=== PATIENT | female | born 1965 | race Caucasian/White ===

== ENCOUNTER 2019-06-30 15:17 | Outpatient (CLI) | payer OTHER, SELFPAY ==
--- NOTE | ~2019-06-30 | MM_ITS ---
EXAMINATION: MM screening [facility] BI w charanjit HISTORY: Screening mammogram TECHNIQUE: Craniocaudal and mediolateral oblique 3-D tomosynthesis images were obtained and synthetic 2-D images were generated. CAD analysis was submitted and interpreted. COMPARISON: 06/27/2018 bilateral digital screening mammogram To diagnostic right digital mammogram and limited right breast ultrasound BREAST PARENCHYMAL COMPOSITION: The breasts are almost entirely fatty. FINDINGS: There is no evidence of suspicious mass, calcification, or architectural distortion to sugg est malignancy in either breast. There has been no suspicious interval change. IMPRESSION: 1. No mammographic evidence of malignancy. 2. Recommend routine screening mammography in one year. BI-RADS Category 1: Negative Reviewed, dictated and finalized at location A. ER APPRENTICE
== END 2019-06-30 15:18 | disposition home or self-care (01) ==
LOC: ANHIMG 15:37
PROVIDERS: PCP Internal Medicine; Visit Provider Nurse Practitioner Women's Health
DX: Z12.31 Encounter for screening mammogram for malignant neoplasm of breast (principal)
CPT/HCPCS: 77063; 77067

== ENCOUNTER 2020-07-08 15:42 | Outpatient (CLI) | payer OTHER, SELFPAY ==
--- NOTE | ~2020-07-08 | MM_ITS ---
EXAMINATION: MM screening [facility] BI w charanjit HISTORY: Screening TECHNIQUE: Craniocaudal and mediolateral oblique 3-D tomosynthesis images were obtained and synthetic 2-D images were generated. CAD analysis was submitted and interpreted. COMPARISON: Comparison to multiple prior studies sequentially, with oldest reviewed study dated 04/22. BREAST PARENCHYMAL COMPOSITION: There are scattered areas of fibroglandular density. FINDINGS: There is no evidence of suspicious mass, calcification, or architectural distortion to sugg est malignancy in either breast. There has been no suspicious interval change. IMPRESSION: 1. No mammographic evidence of malignancy. 2. Recommend routine screening mammography in one year. BI-RADS Category 1: Negative Reviewed, dictated and finalized at location A. TEACHER
== END 2020-07-08 15:43 | disposition home or self-care (01) ==
PROVIDERS: PCP Internal Medicine; Visit Provider Nurse Practitioner Women's Health
DX: Z12.31 Encounter for screening mammogram for malignant neoplasm of breast (principal)
CPT/HCPCS: 77063; 77067

== ENCOUNTER 2021-05-03 06:55 | Outpatient (CLI) | payer OTHER, SELFPAY ==
[2021-05-03 07:53] LABS: Alanine Aminotransferase 29 U/L (4-35); Albumin Level 4.8 g/dL (3.5-5.1); Alkaline Phosphatase 75 U/L (38-126); Anion Gap 10 mmol/L (8-16); Aspartate Amino Transferase 29 U/L (14-36); Bilirubin,Total 0.4 mg/dL (0.2-1.3); Blood Urea Nitrogen 14 mg/dL (7-17); Calcium 9.6 mg/dL (8.4-10.2); Carbon Dioxide 23 mmol/L (22-30); Chloride 103 mmol/L (98-107); Cholesterol 267 mg/dL (0-200); Estimated Glomerular Filt Rate > 60; Glucose 111 mg/dL (65-110); HDL Direct 53 mg/dL; Potassium 4.1 mmol/L (3.4-5.0); Sodium 136 mmol/L (137-145); Triglycerides 189 mg/dL (<150)
[2021-05-03 08:03] LABS: LDL Cholesterol Direct 175 mg/dL
[2021-05-03 08:08] LABS: Basophils Absolute Auto 0.1 K/mm3 (0.0-0.1); Eosinophils Absolute Auto 0.3 K/mm3 (0-0.3); Eosinophils Percent Auto 4.7 % (0-4.4); Hematocrit 46.3 % (37.0-47.0); Hemoglobin 15.6 g/dL (12.0-15.0); Immature Granulocyte Absolute 0.02 K/mm3 (0.00-0.031); Immature Granulocyte Percent A 0.3 % (0-0.5); Lymphocytes Absolute Auto 2.13 K/mm3 (0.9-3.2); Lymphocytes Percent Auto 29.5 % (18.3-44.2); Mean Corpuscular HGB Conc 33.7 g/dl (32-36); Mean Corpuscular Hemoglobin 30.4 pg (26-34); Mean Corpuscular Volume 90.3 fl (80-100); Mean Platelet Volume 9.8 fl (7.4-10.4); Monocytes Absolute Auto 0.4 K/mm3 (0.1-0.6); Neutrophils Absolute Auto 4.2 K/mm3 (1.3-6.7); Neutrophils Percent Auto 58.5 % (45.5-73.1); Platelet Count Result 278 k/mm3 (150-375); Red Blood Count 5.13 M/mm3 (4.2-5.4); Red Cell Distribution Width 12.6 % (11.5-14.5); White Blood Count 7.2 K/mm3 (4.5-10.0)
[2021-05-03 08:10] LABS: Vitamin D 25 Hydroxy 50.6 ng/mL
[2021-05-03 13:48] LABS: Free T4 Free Thyroxine Reflex 0.81 ng/dL (0.78-2.19)
[2021-05-03 19:20] LABS: Total Triiodothyronine (T3) 1.34 NG/ML (0.97-1.69)
== END 2021-05-03 06:56 | disposition home or self-care (01) ==
PROVIDERS: Visit Provider Nurse Practitioner Women's Health
DX: Z12.31 Encounter for screening mammogram for malignant neoplasm of breast (principal); Z01.419 Encounter for gynecological examination (general) (routine) without abnormal findings
CPT/HCPCS: 36415; 80053; 80061; 82306; 84439; 84443; 84480; 85025

== ENCOUNTER 2021-07-29 15:38 | Outpatient (CLI) | payer OTHER, SELFPAY ==
--- NOTE | ~2021-07-29 | MM_ITS ---
EXAMINATION: MM screening [facility] BI w charanjit HISTORY: Screening mammogram TECHNIQUE: Craniocaudal and mediolateral oblique 3-D tomosynthesis images were obtained and synthetic 2-D images were generated. CAD analysis was submitted and interpreted. COMPARISON: 07/08/2020, 06/30/2019 BREAST PARENCHYMAL COMPOSITION: There are scattered areas of fibroglandular density. FINDINGS: There is no evidence of suspicious mass, calcification, or architectural distortion to sugg est malignancy in either breast. There has been no suspicious interval change. IMPRESSION: 1. No mammographic evidence of malignancy. 2. Recommend routine screening mammography in one year. BI-RADS Category 1: Negative Reviewed, dictated and finalized at location A.
== END 2021-07-29 15:39 | disposition home or self-care (01) ==
LOC: ANHIMG 15:40
PROVIDERS: PCP Family Medicine; Visit Provider Nurse Practitioner Women's Health
DX: Z12.31 Encounter for screening mammogram for malignant neoplasm of breast (principal)
CPT/HCPCS: 77063; 77067

== ENCOUNTER 2022-11-17 07:15 | Outpatient (CLI) | payer OTHER, SELFPAY ==
--- NOTE | ~2022-11-17 | MM_ITS ---
EXAMINATION: MM screening [facility] BI w charanjit HISTORY: Screening mammogram TECHNIQUE: Craniocaudal and mediolateral oblique 3-D tomosynthesis images were obtained and synthetic 2-D images were generated. CAD analysis was submitted and interpreted. COMPARISON: 07/29/2021, 07/08/2020, 06/30/2019 BREAST PARENCHYMAL COMPOSITION:There are scattered areas of fibroglandular density. FINDINGS: No suspicious mass, calcification, or architectural distortion are identified in either renetta ast to suggest malignancy. There has been no suspicious interval change. IMPRESSION: No mammographic evidence of malignancy. Recommend routine screening mammography in one year. BI-RADS Category 1: Negative Reviewed, dictated and finalized at location .
== END 2022-11-17 07:16 | disposition home or self-care (01) ==
LOC: ANHIMG 07:17
PROVIDERS: PCP Nurse Practitioner Women's Health; Visit Provider Nurse Practitioner Women's Health
DX: Z12.31 Encounter for screening mammogram for malignant neoplasm of breast (principal)
CPT/HCPCS: 77063; 77067

== ENCOUNTER 2023-02-27 08:42 | Outpatient (CLI) | payer OTHER, SELFPAY ==
[2023-02-27 09:02] LABS: Basophils Absolute Auto 0.1 K/mm3 (0.0-0.1); Basophils Percent Auto 1.1 % (0.2-1.2); Eosinophils Absolute Auto 0.2 K/mm3 (0-0.3); Eosinophils Percent Auto 2.7 % (0-4.4); Hematocrit 45.7 % (37.0-47.0); Hemoglobin 15.3 g/dL (12.0-15.0); Immature Granulocyte Absolute 0.02 K/mm3 (0.00-0.031); Immature Granulocyte Percent A 0.3 % (0-0.5); Lymphocytes Absolute Auto 2.34 K/mm3 (0.9-3.2); Lymphocytes Percent Auto 36.7 % (18.3-44.2); Mean Corpuscular HGB Conc 33.5 g/dl (32-36); Mean Corpuscular Hemoglobin 30.3 pg (26-34); Mean Corpuscular Volume 90.5 fl (80-100); Mean Platelet Volume 9.7 fl (7.4-10.4); Monocytes Absolute Auto 0.3 K/mm3 (0.1-0.6); Monocytes Percent Auto 5.3 % (2.6-8.5); Neutrophils Absolute Auto 3.4 K/mm3 (1.3-6.7); Neutrophils Percent Auto 53.9 % (45.5-73.1); Platelet Count Result 252 k/mm3 (150-375); Red Blood Count 5.05 M/mm3 (4.2-5.4); Red Cell Distribution Width 12.6 % (11.5-14.5); White Blood Count 6.4 K/mm3 (4.5-10.0)
[2023-02-27 09:15] LABS: Hemoglobin A1C 5.6 % (<5.7)
[2023-02-27 09:18] LABS: Alanine Aminotransferase 23 U/L (6-35); Albumin Level 4.8 g/dL (3.5-5.1); Alkaline Phosphatase 66 U/L (38-126); Anion Gap 9 mmol/L (8-16); Aspartate Amino Transferase 25 U/L (14-36); Bilirubin,Total 0.6 mg/dL (0.2-1.3); Blood Urea Nitrogen 15 mg/dL (7-17); Calcium 9.5 mg/dL (8.4-10.2); Carbon Dioxide 22 mmol/L (22-30); Chloride 106 mmol/L (98-107); Cholesterol 277 mg/dL (0-200); Estimated Glomerular Filt Rate > 60; Glucose 102 mg/dL (65-110); HDL Direct 59 mg/dL; Potassium 4.1 mmol/L (3.4-5.0); Sodium 137 mmol/L (137-145); Triglycerides 184 mg/dL (<150)
[2023-02-27 09:29] LABS: LDL Cholesterol Direct 162 mg/dL
[2023-02-27 09:45] LABS: Vitamin D 25 Hydroxy 34.4 ng/mL
== END 2023-02-27 08:43 | disposition home or self-care (01) ==
LOC: ANHLAB 08:44
PROVIDERS: PCP Nurse Practitioner Women's Health; Visit Provider Physician Assistant Medical
DX: Z00.00 Encounter for general adult medical examination without abnormal findings (principal)
CPT/HCPCS: 36415; 80053; 80061; 82306; 82607; 83036; 84443; 85025

== ENCOUNTER 2023-06-12 07:22 | Outpatient (CLI) | payer OTHER, SELFPAY ==
[2023-06-12 08:11] LABS: Cholesterol 158 mg/dL (0-200); HDL Direct 45 mg/dL; Triglycerides 164 mg/dL (<150)
[2023-06-12 08:21] LABS: LDL Cholesterol Direct 89 mg/dL
[2023-06-12 08:33] LABS: Free T4 Free Thyroxine 0.99 ng/mL (0.78-2.19)
[2023-06-15 06:44] LABS: Thyroid Peroxidase Antibodies <1 IU/mL (<9)
== END 2023-06-12 07:23 | disposition home or self-care (01) ==
LOC: ANHLAB 07:23
PROVIDERS: PCP Family Medicine; Visit Provider Physician Assistant Medical
DX: E53.8 Deficiency of other specified B group vitamins (principal); E78.5 Hyperlipidemia, unspecified; R79.89 Other specified abnormal findings of blood chemistry
CPT/HCPCS: 36415; 80061; 82607; 84439; 84443; 86376

== ENCOUNTER 2023-06-15 00:44 | Day surgery (SDC) | payer OTHER, SELFPAY ==
[2023-05-17 10:15] VITALS: BMI 29.1
--- NOTE | 2023-06-13 09:15 | SUR.PREOP ---
Patient called regarding upcoming procedure. Message left on patient's voicemail regarding appointment times.
[2023-06-15 07:35] VITALS: BP 113/71; PULSE 98; RESP 18; TEMP 36.4; O2SAT 100; BMI 33.8
[2023-06-15] MEDS: LACTATED RINGERS 1,000 ML 150 ML IV CONT (08:02)
--- NOTE | 2023-06-15 08:55 | WPDANESEPPF ---
Anes - Initial Pre Proc Eval Procedure: Operation Date: 06/15/23 09:00 Proposed Procedures p Screening Colonoscopy - Chito Pizarro MD Date/Time: 06/15/23 08:55 Surgeon: Chito Pizarro MD Pre Op Diagnosis: neoplasm screening Patient Data Age: 58 Gender: F Height: 1.55 m Weight: 81.2 kg Last Vital Signs Temp 97.5 F L 06/15/23 07:35 Pulse 98 06/15/23 07:35 Resp 18 06/15/23 07:35 BP 113/71 06/15/23 07:35 Pulse Ox 100 06/15/23 07:35 O2 Del Method Room Air 06/15/23 07:35 Allergies Allergy/AdvReac Type Severity Reaction Status Date / Time No Known Allergies Allergy Unknown Verified 05/17/23 10:12 Home Medications Medication Instructions Recorded Confirmed Type multivitamin (Daily Multi-Vitamin 1 tablet PO DAILY 06/20/21 05/17/23 History tablet) sertraline 25 mg tablet 25 mg PO DAILY 06/20/21 05/17/23 History atorvastatin 20 mg tablet (Lipitor) 20 mg PO QHS #90 tabs 06/13/23 Rx Patient hx anesthesia problems: none Family hx anesthesia problems: none Results Review: All pre-operative results and documents have been reviewed as part of the pre-operative evaluation. [facility] Past Medical History Medical History (Updated 03/09/23 @ 11:56 by Kim Crabtree PA-C) Abnormal TSH Family history of CABG Both parents had CABG Hyperglycemia Hyperlipidemia Irritable bowel syndrome Polycythemia Vitamin B12 deficiency Vitamin D deficiency Surgical History Surgical History H/O sinus surgery History of tonsillectomy Previous section Family History Family History Mother Cerebrovascular accident Heart disease Father Cerebrovascular accident, Onset Age: 79 Malignant neoplasm of prostate, Onset Age: 79 Patient's father is , Onset Age: 79 Other Family history of malignant neoplasm of breast Social History Social History (Updated 03/09/23 @ 10:51 by Marifer Fernandez MA) Smoking status: Former smoker Alcohol intake: current Drinks per week: 4 Alcohol use details: Weekends Substance use: never Lack of Transportation: No Lack of Food: Never True Current Housing: I Have Housing Concerned About Future Housing: No Difficulty Paying Gas/Electric Bills: No Difficulty Paying for Meds: No Currently Unemployed: No Education: Associate Degree Difficulty w/ Childcare or Family Care: No Living arrangements: with family Occupation/Education: occupation 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[employer] Gender identity (if verbalized by the patient): Female Sexual Orientation (if Verbalized by the Patient): Straight or Heterosexual Spiritual care concerns: No Agree to blood products: Yes Anes - Eval Final PreProcedure Day of Procedure 06/15/23 08:55 Patient weight: obese Heart: regular rate and rhythm Lungs: clear to auscultation Airway: Mallampati scale class II Neurological: alert and oriented Last oral intake: >/= 8 hours ASA classification: II Emergent: no Anesthetic plan: proceed Anesthesia type and monitoring: general GIVS and standard monitoring Results Review: All pre-operative results and documents have been reviewed as part of the pre-operative evaluation. Informed Consent: The patient's anesthetic plan and its attendant risks and benefits were discussed with the patient/family/POA. Questions were solicited and answers provided to the satisfaction of the patient/family/POA.
--- NOTE | 2023-06-15 08:58 | PM.HPGS ---
History of Present Illness History of Present Illness Consent: Risks, benefits, and alternatives have been discussed and questions answered. Patient agrees to proceed with procedure. Chief complaint: neoplasm screening Narrative: Em Goldamn is a 58 year old female here for first screening colonoscopy Review of Systems Constitutional: Constitutional: Denies headache(s) and Denies weakness Eyes: Eyes: Denies blurry vision ENT: Reports Normal hearing present, Denies headache(s) and Denies neck pain Cardiovascular: Cardiovascular: Denies chest pain and Denies dyspnea Respiratory: Respiratory: Denies dyspnea Gastrointestinal: Gastrointestinal: Reports no additional gastrointestinal complaints Genitourinary: Genitourinary: Denies dysuria Musculoskeletal: Musculoskeletal: Denies neck pain Integumentary/Breasts: Skin/Breast: Denies dry skin Neurologic: Reports Normal hearing present, Denies headache(s) and Denies weakness Psychiatric: Psychiatric: Denies anxiety Endocrine: Endocrine: Denies change in body appearance Hematologic/Lymphatic: Hematologic/Lymphatic: Denies easy bleeding Allergic/Immunologic: Allergic/Immunologic: Denies urticaria PMF Past Medical History Medical History (Updated 03/09/23 @ 11:56 by Kim Crabtree PA-C) Abnormal TSH Family history of CABG Both parents had CABG Hyperglycemia Hyperlipidemia Irritable bowel syndrome Polycythemia Vitamin B12 deficiency Vitamin D deficiency Surgical History Surgical History H/O sinus surgery History of tonsillectomy Previous section Family History Family History Mother Cerebrovascular accident Heart disease Father Cerebrovascular accident, Onset Age: 79 Malignant neoplasm of prostate, Onset Age: 79 Patient's father is , Onset Age: 79 Other Family history of malignant neoplasm of breast Social History Social History (Updated 03/09/23 @ 10:51 by Marifer Fernandez MA) Smoking status: Former smoker Alcohol intake: current Drinks per week: 4 Alcohol use details: Weekends Substance use: never Lack of Transportation: No Lack of Food: Never True Current Housing: I Have Housing Concerned About Future Housing: No Difficulty Paying Gas/Electric Bills: No Difficulty Paying for Meds: No Currently Unemployed: No Education: Associate Degree Difficulty w/ Childcare or Family Care: No Living arrangements: with family Occupation/Education: occupation Additional occupation/education comments: Night Supervisor Gender identity (if verbalized by the patient): Female Sexual Orientation (if Verbalized by the Patient): Straight or Heterosexual Spiritual care concerns: No Agree to blood products: Yes Meds Home Medications and Allergies Home Medications Medication Instructions Recorded Confirmed Type multivitamin (Daily Multi-Vitamin 1 tablet PO DAILY 06/20/21 05/17/23 History tablet) sertraline 25 mg tablet 25 mg PO DAILY 06/20/21 05/17/23 History atorvastatin 20 mg tablet (Lipitor) 20 mg PO QHS #90 tabs 06/13/23 Rx Allergies Allergy/AdvReac Type Severity Reaction Status Date / Time No Known Allergies Allergy Unknown Verified 05/17/23 10:12 Vital Signs Vital Signs - 24 hr 06/15/23 07:35 Temperature 97.5 F L Pulse Rate 98 Respiratory Rate 18 Blood Pressure 113/71 Pulse Oximetry 100 Oxygen Delivery Room Air Exam Const: General: comfortable and no acute distress HENMT: Face/Nose/Sinus: Normal nares present Eyes: General: appearance normal, both eyes and all related structures Neck: Neck: no JVD Resp: Auscultation: clear to auscultation bilaterally Cardio: Rate: regular rate Rhythm: regular rhythm GI: Inspection: non-distended GI Palp: Yes Soft to palpation Skin: General skin exam: normal color Neuro: General: ga
[2023-06-15 09:15] VITALS: BP 128/72; PULSE 87; RESP 19; O2SAT 98
[2023-06-15 09:25] VITALS: BP 107/76; PULSE 85; RESP 20; O2SAT 96
[2023-06-15 09:35] VITALS: BP 124/86; PULSE 78; RESP 18; O2SAT 99
== END 2023-06-15 09:40 | disposition home or self-care (01) ==
PROVIDERS: PCP Family Medicine; Visit Provider Internal Medicine Gastroenterology
PROC: 0DJD8ZZ Inspection of Lower Intestinal Tract, Via Natural or Artificial Opening Endoscopic (ICD-10-PCS; CPT 45378; principal; 2023-06-15 09:00)
DX: Z12.11 Encounter for screening for malignant neoplasm of colon (principal); D12.0 Benign neoplasm of cecum; D12.4 Benign neoplasm of descending colon; K57.30 Diverticulosis of large intestine without perforation or abscess without bleeding; K64.8 Other hemorrhoids; E78.5 Hyperlipidemia, unspecified; Z87.891 Personal history of nicotine dependence; E66.9 Obesity, unspecified; Z68.33 Body mass index [BMI] 33.0-33.9, adult
CPT/HCPCS: 45385; 45380; 88305; J2704; J7120

== ENCOUNTER 2023-11-26 16:10 | Outpatient (CLI) | payer OTHER, SELFPAY ==
--- NOTE | ~2023-11-26 | US_ITS ---
EXAMINATION: US pelvic complete w TV DATE: 11/26/2023 16:54 INDICATION: Postmenopausal bleeding. TECHNIQUE: Multiple transabdominal and transvaginal sonographic images of the pelvis were obtained. COMPARISON: None. FINDINGS: TRANSABDOMINAL ULTRASOUND: The uterus measures 9.2 x 3.1 x 4.1 cm. There is no free fluid in the pelvis. TRANSVAGINAL ULTRASOUND: The endometrial complex measures 3 mm in thickness. The ovaries are not visualized. IMPRESSION: 1. Normal uterus. 2. Ovaries are not visualized. Reviewed, dictated and finalized at location E.
== END 2023-11-26 16:11 | disposition home or self-care (01) ==
LOC: ANHIMG 16:10
PROVIDERS: PCP Physician Assistant Medical
DX: N95.0 Postmenopausal bleeding (principal)
CPT/HCPCS: 76830; 76856

== ENCOUNTER 2024-01-01 15:46 | Outpatient (CLI) | payer OTHER, SELFPAY ==
--- NOTE | ~2024-01-01 | MM_ITS ---
EXAMINATION: MM screening [facility] BI w charanjit HISTORY: Screening TECHNIQUE: Craniocaudal and mediolateral oblique 3-D tomosynthesis images were obtained and synthetic 2-D images were generated. CAD analysis was submitted and interpreted. COMPARISON: Comparison to multiple prior studies sequentially, with oldest reviewed study dated 11/2018. BREAST PARENCHYMAL COMPOSITION: Not dense: There are scattered areas of fibroglandular density. FINDINGS: There is no evidence of suspicious mass, calcification, or architectural distortion to sugg est malignancy in either breast. There has been no suspicious interval change. IMPRESSION: 1. No mammographic evidence of malignancy. 2. Recommend routine screening mammography in one year. BI-RADS Category 1: Negative Reviewed, dictated and finalized at location B.
== END 2024-01-01 15:47 | disposition home or self-care (01) ==
LOC: ANHIMG 15:47
PROVIDERS: PCP Physician Assistant Medical; Visit Provider Nurse Practitioner Women's Health
DX: Z12.31 Encounter for screening mammogram for malignant neoplasm of breast (principal)
CPT/HCPCS: 77063; 77067

== ENCOUNTER 2024-06-24 06:55 | Outpatient (CLI) | payer OTHER, SELFPAY ==
--- OUTSIDE RECORDS SUMMARY | 2024-06-24 06:59 | XMS_ITS | Encounter Summary ---
Author Organization [facility] Address [address] [place] [address]. [place] [address] [place] [address] Care Team Providers Care Vessel Manager Name Role Phone Unavailable Primary Care Provider Unavailabl e Encounter Details Date Type Department Care Team (Late st Contact Info) Description 04/21/2013 Abstract [facility] CONVERSION [id number] [place] [address] , Generic Conversion, Social History Tobacco Use Types Packs/Day Years Used Date Smoking Tobacco: Never Assessed Comments Unknown Sex and Gender Information Value Date Recorded Sex Assigned at Not on file Legal Sex Female 9:14 PM CDT Gender Identity Not on file Sexual Orientation Not on file documented as of this encounter Plan of Treatment Not on file documented as of this encounter Visit Diagnoses Not on filedocumented in this encounter
--- OUTSIDE RECORDS SUMMARY | 2024-06-24 06:59 | XMS_ITS | Clinical Summary ---
Author Organization [facility] Address [address] [place] [address]. [place], [place] [id number] [place] [id number] Care Team Providers Care Wax Specialist Name Role Phone Unavailable Primary Care Provider Unavailabl e Social History Tobacco Use Types Packs/Day Years Used Date Smoking Tobacco: Never Assessed Comments Unknown Sex and Gender Information Value Date Recorded Sex Assigned at Not on file Legal Sex Female 9:14 PM CDT Gender Identity Not on file Sexual Orientation Not on file Plan of Treatment Health Maintenance Due Date Last Done Comments Cervical Cancer Screening Pa p Smear (Age 30 to 64) Every 3 Years 1963 Colorectal Cancer Screening Colonoscopy (10 Years) 1963 Annual Physical 1966 Hepatitis C 1981 DTaP, Tdap and Td Vaccines ( 1 - Tdap) 1982 Mammogram Screening 2003 Zoster Vaccines (1 of 2) 2013 Cervical Cancer Screening Pa p with HPV Testing (Age 30 to 64) Every 5 Years 03/13/2022 03/13/2017 Cervical Cancer Screening with HPV 03/13/2022 COVID-19 Vaccine ( - 2023-2 5 season) 2024 Influenza Adult (#1) 2024 RSV Immunization or 60+ Years (1 - 1-dose 75+ series) 2038 Meningococcal B Vaccine Aged Out No l onger eligible based on patient's age to complete this topic Meningococcal Vaccine Aged Out No soy jyoti eligible based on patient's age to complete this topic Pneumococcal Vaccine: Pediat rics (0 to 5 Years) and At-Risk Patients (6 to 64 Years) Aged Out No longer eligi ble based on patient's age to complete this topic RSV Immunizations Under 20 Months Aged Out No longer eligible based on patient's age to complete this topic Procedures Procedure Name Priority Date/Time Associated Diagnosis Comments HPV MRNA E6/E7 Routine 03/13/2017 6:24 PM CDT from Last 3 Months or Most Recently Relevant to Health Maintenance Results * HPV MRNA E6/E7 (03/13/2017 6:24 PM CDT) HPV MRNA E6/E7 Not Detected NOT DETECTED 03/17/2017 1:30 PM CDT [facility] Comment: This test was performed using the APTIMA(R) HPV Assay([employer]This assay detects E6/E7 viral messenger RNA (mRNA)from 14 high-risk HPV types (16,18,31,33,35,39,45,51,52,56,58,59,66,68).For additional information please refer to:http://education.FIMBex/faq/DVK086b2(This link is being provided for informational/educational purposes only.)Test Performed by Andres Ferrell,[employer] [facility],[address] [place] [id number] Zhu M.D., Ph.D., Director of [phone], [facility] [id number] FLUID SPECIMEN / Unknown 03/13/2017 6:24 PM CDT 03/13/2017 6:24 PM CDT us Generic Conversion Md [facility] PATHOLOGY/CYTOLOGY LEXA [facility]ER [facility] [id number] [place] [address], from Last 3 Months or Most Recently Relevant to Health Maintenance
[2024-06-24 07:57] LABS: Basophils Absolute Auto 0.1 K/mm3 (0.0-0.1); Basophils Percent Auto 0.9 % (0.2-1.2); Eosinophils Absolute Auto 0.3 K/mm3 (0-0.3); Eosinophils Percent Auto 3.8 % (0-4.4); Hematocrit 44.2 % (37.0-47.0); Hemoglobin 14.7 g/dL (12.0-15.0); Immature Granulocyte Absolute 0.03 K/mm3 (0.00-0.031); Immature Granulocyte Percent A 0.5 % (0-0.5); Lymphocytes Absolute Auto 2.13 K/mm3 (0.9-3.2); Lymphocytes Percent Auto 32.1 % (18.3-44.2); Mean Corpuscular HGB Conc 33.3 g/dl (32-36); Mean Corpuscular Hemoglobin 30.2 pg (26-34); Mean Corpuscular Volume 90.9 fl (80-100); Mean Platelet Volume 10.6 fl (7.4-10.4); Monocytes Absolute Auto 0.5 K/mm3 (0.1-0.6); Monocytes Percent Auto 7.2 % (2.6-8.5); Neutrophils Absolute Auto 3.7 K/mm3 (1.3-6.7); Neutrophils Percent Auto 55.5 % (45.5-73.1); Platelet Count Result 227 k/mm3 (150-375); Red Blood Count 4.86 M/mm3 (4.2-5.4); Red Cell Distribution Width 12.9 % (11.5-14.5); White Blood Count 6.6 K/mm3 (4.5-10.0)
[2024-06-24 10:07] LABS: Free T4 Free Thyroxine 0.93 ng/dL (0.78-2.19); Vitamin D 25 Hydroxy 33.2 ng/mL
[2024-06-24 10:44] LABS: Alanine Aminotransferase 22 U/L (6-35); Albumin Level 4.4 g/dL (3.5-5.1); Alkaline Phosphatase 69 U/L (38-126); Anion Gap 9 mmol/L (4-12); Aspartate Amino Transferase 24 U/L (14-36); Bilirubin,Total 0.6 mg/dL (0.2-1.3); Blood Urea Nitrogen 14 mg/dL (7-17); Calcium 9.7 mg/dL (8.4-10.2); Carbon Dioxide 25 mmol/L (22-30); Chloride 106 mmol/L (98-107); Cholesterol 179 mg/dL (0-200); Estimated Glomerular Filt Rate > 60; Glucose 96 mg/dL (65-110); HDL Direct 54 mg/dL; Potassium 4.3 mmol/L (3.4-5.0); Sodium 140 mmol/L (137-145); Triglycerides 126 mg/dL (<150)
[2024-06-24 10:55] LABS: LDL Cholesterol Direct 101 mg/dL
== END 2024-06-24 06:56 | disposition home or self-care (01) ==
LOC: ANHLAB 06:57
PROVIDERS: PCP Physician Assistant Medical; Visit Provider Physician Assistant Medical
DX: Z00.00 Encounter for general adult medical examination without abnormal findings (principal); E78.5 Hyperlipidemia, unspecified; R79.89 Other specified abnormal findings of blood chemistry; E55.9 Vitamin D deficiency, unspecified; E53.8 Deficiency of other specified B group vitamins
CPT/HCPCS: 36415; 80053; 80061; 82306; 82607; 84439; 84443; 85025

== ENCOUNTER 2025-03-10 15:54 | Outpatient (CLI) | payer OTHER, SELFPAY ==
--- NOTE | ~2025-03-10 | MM_ITS ---
EXAMINATION: MM screening latosha BI w charanjit HISTORY: Screening TECHNIQUE: Craniocaudal and mediolateral oblique 3-D tomosynthesis images were obtained and synthetic 2-D images were generated. CAD analysis was submitted and interpreted. COMPARISON: Comparison to multiple prior studies sequentially, with oldest reviewed study dated , 07/08/2020 BREAST PARENCHYMAL COMPOSITION: The breasts are almost entirely fatty. FINDINGS: There is no evidence of suspicious mass, calcification, or architectural distortion to suggest malignancy in either breast. IMPRESSION: 1. No mammographic evidence of malignancy. 2. Recommend routine screening mammography in one year. BI-RADS Category 1: Negative Reviewed, dictated and finalized at location C.
--- OUTSIDE RECORDS SUMMARY | 2025-03-10 19:39 | XMS_ITS | Data Portability ---
Author Organization [facility], [id number] [facility] Address [address] [place] [address] Assessment No assessment recorded. Plan of Treatment Reminders Order Date Submit Date Provider Last Modified By Organization Details Last Modified Time Details Appointments ANNUAL- EST 15 2025 07:45A M VAHE WASHINGTON MD Not available Not available Not available Lab None recorded. Referral None recorded. Procedures None recorded. Surgeries None recorded. Imaging MAMMO, screening , bilateral [address] [place] [address] (Imaging), [address] [place] [address], [phone], 10/17/2024 10:30:09 DEXA [address] [place] [address] ([facility]), [address] [place] [address], [phone], 10/17/2024 10:30:09 Medication Orders None recorded. Patient TargetsNo targets recorded. Patient InstructionsNo instructions recorded. Reason for Referral None Reported. Procedures Surgical History Date Name Laterality Status Provider Name and Address Organization Details Recorded Time 01/01/20 24 Date of Last Mammogram completed [facility] 10/03/2024 12:54:29 05/25/19 24 Date of Last Pap Smear completed [facility] 10/03/2024 12:53:49 05/21/19 24 Date of Last Colonoscopy completed Crystal Deon [facility] 10/03/2024 12:54:43 section completed Not Available [facility] 09/18/2024 12:35:25 other specified functional endoscopic sinus surgery - therapeutic endoscopy of nose or sinus completed Not Available [facility] 09/18/2024 12:35:25 tonsillectomy completed Not Available [facility] 09/18/2024 12:35:26 Colonoscopy completed Chel Chavarria [facility] 10/03/2024 12:49:35 Imaging Results None recorded. Procedure Notes None recorded. Medical Equipment None Reported. Allergies No known drug allergies Medications Name Sig Start Date Stop Date Status Note LastModified by Organization Details LastModified Time atorvastatin 20 mg tablet TAKE 1 TABLET BY MOUTH EVERY DAY AT BEDTIME active Not Available Not Available No t Available multivitamin active Not Available Not Available Not Available Vitals Date Recorded Body height Body mass index (BMI) Body weight Systolic And Diastolic Provider Name and Address Organization Details Last Updated DateTime 10/03/2024 152.4 cm 33.9 kg/m2 05721.64 g 114/68 mm[Hg] Chel Chavarria [facility] 10/03/2024 12:52:21 Social History Question Answer Notes LastModified by Organizat ion Details LastModified Time Tobacco Smoking Status Former Smoker Chel Chavarria [facility] 10/03/2024 12:55:54 Do You Have An Advance Directive? No [email or web address] Information not available 10/03/2024 What Is Your Level Of Caffeine Consumption? Occasional [email or web address] Information not available 10/03/2024 What Is Your Relationship Status? [email or web address] Information not available 10/03/2024 Sex: Female Functional Status Question Answer Note LastModified by Organizat ion Details LastModified Time Do you use any illicit or recreational drugs? No [email or web address] Information not available 09/18/2024 What is your level of alcohol consumption? Occasional [email or web address] Information not available 10/03/2024 Are you currently employed? 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 Family History Relationship Description Onset Age of this Age Resolved Age Notes LastModified by Organization Details LastModified Time Maternal Grandfather Myocardial infarction Myocar dial Infarc tion Not available 09/18/2024 12:09:58 Paternal Grandfather Myocardial infarction Myocar dial Infarc tion Not available 09/18/2024 12:09:58 Father Malignant neoplastic disease Cancer Fa-pro state Not available 09/18/2024 12:09:58 Father Heart disease Heart Diseas e bypass - mom and dad Not available 09/18/2024 12:09:58 Mother Dementia Radha ia [email or web address] Not available 10/03/2024 12:26:32 Mother Heart disease Heart Diseas e bypass - mom and dad Not available 09/18/2024 12:09:58 Medical History Condition Response Cancer- Genetic screening Gynecological History Statement/Question Response History of PCOS N History of Fibroids N Flow Heavy Date of Last Mammogram 01/01/2024 Date of LMP 02/08/2018 History of Infertility N History of Vulvar Dysplasia N History of Cervical Dysplasia N Duration of Flow (days) 0 Current Control Method Age at Menarche 11 History of Recurrent Ovarian Cysts N History of Endometriosis N Date of Last Colonoscopy 05/21/2023 Frequency of Cycle (Q days) 0 Sexually Active? N History of Dysmenorrhea N Menses Monthly N Date of Last HPV Test 05/25/2023 Date of Last Pap Smear 05/25/2023 History of Sexually Transmitted Infectio n N Date of Last Cholesterol Screening 05/21 Obstetrics History GPAL:G 2 P 2 0 0 2 Type Value Multiple Births 0 Full Term 2 Induced 0 Spontaneous 0 Premature 0 Living 2 Ectopics 0 Total 2 Past Encounters Encounter ID Performer Location Encounter Start Date Encounter Closed Date Diagnosis/Indication Diagnosis SNOMED-CT Code Diagnosis ICD10 Code Diagnosis IMO Codes Diagnosis Note [id number] VAHE FELIX RD, MD [id number] [address] [place] [address] 10/03/2024 12:26:31 10/03/2024 13:18:37 Screening mammography 54522259 Z12.31 [id number] Gynecologi c examination 05793901 Z01.912 [id number] Yearly mammogramR egular exerciseSc reening colonoscop yGeneral lab screening yearly Menopause present 238629 006 Z78.0 87882 Health Concerns Section Related Observation LastModified by Organization Detai ls LastModified Time None Recorded Concern Status LastModified by Organization Details LastModified Time None Recorded Advance Directives Directive N: Payers Insurance Date Sequence Insurance Name Policy Number Policy Leonard Covered Member ID Leonard Member ID Guarantor Name 10/03/2024 1 [facility] [id number] Em Goldman [id number] Em Goldman Notes Date Note Type Note Provider Name and Address Organization Details Recorded Time 10/03/2024 text/html Annual PERSONNEL TRAINING OFFICER - McwhcReported by PatientHistoryFor history, patient reportsno gynecologic complaintsandno change in interval history.Genitourinary symptomsFor urinary symptoms, patient reportsno hematuriaandno incontinence. For vulvar complaints, patient reportsnone. For vaginal complaints, patient reportsnone.Breast symptomsFor breast, patient reportsno breast pain,no breast lump, andno nipple discharge.Endocrine symptomsFor menopausal symptoms, patient reportsno menopausal symptoms.Psychological symptomsFor psychological symptoms, patient reportsno depression(screen negative.).Preventativ e measuresFor preventive measures, patient reportsencourage self breast examination,encourage regular exercise,encourage no tobacco use,encourage regular mammograms starting age 40, andup to date on colonoscopy screening.Discussed diet and exercise. Has chronic constipation. Has tried several thingsWill check with insurance about DEXARuns hot but no hot flashes.ROS as noted in the HPI Patient is here for routine annual exam. Patient does not have any problems or concerns at this time. Pathology Transcriptionist offered per [facility] policy. Pathology Transcriptionist was DECLINED. Patient is here for annual exam. No complaints. No postmenopausal bleeding VAHE MARKS MD [address], [place], [address], [facility] 10/03/2024 13:19:20 OBGyn Episode Ob Episode Information Episode Created Date Number of Fetuses Patient Bloodtype Patient rh Status Prepregnancy Weight lbs Domestic Partner Domestic Partner Phone Father Name State Appellate Clerk Status 10/03/19 25 1 CLOSED Fetus Data First Name Last Name Admitted to NICU Weight (g) Sex Living Outcome Pediatric Complications Fetus ID Race Codes Race Delivery Type F [id number] [place] Calculation Initial Rafael Date Initial Exam Date Initial Exam Provider Initial Ultrasound Date Last Menstrual Period Date Ultra Sound Weeks Gestation 0 Eighteen To Twenty Week Rafael Update Ultra Sound Date Fundal Height At Umbil Quickening Date Ultra Sound Latest Weeks Gestation Final Rafael Confirmed By Final Rafael Confirmed Date Final Rafael Date Ultra Sound Latest Days Gestation 0 0 Menstrual History Last Menstrual Date Menses Monthly On Bcp Conception Prior Menses Frequency Hcg Plus Date Menarche Onset Age Delivery Information Delivery Date Delivery Type Labor Anesthesia Weeks Gestation Incision Type Labor Labor Length Hrs Delivered By Post Complications Tubal Sterilization Discharge Date Comments 4 [facility], fetus_1_w eight_lbs : '; Discharge Information Feeding Method Contraceptive Method Maternal HG B and HCT Levels Ob Episode Information Episode Created Date Number of Fetuses Patient Bloodtype Patient rh Status Prepregnancy Weight lbs Domestic Partner Domestic Partner Phone Father Name State Appellate Clerk Status 10/03/19 25 1 CLOSED Fetus Data First Name Last Name Admitted to NICU Weight (g) Sex Living Outcome Pediatric Complications Fetus ID Race Codes Race Delivery Type F [id number] [place] Calculation Initial Rafael Date Initial Exam Date Initial Exam Provider Initial Ultrasound Date Last Menstrual Period Date Ultra Sound Weeks Gestation 0 Eighteen To Twenty Week Rafael Update Ultra Sound Date Fundal Height At Umbil Quickening Date Ultra Sound Latest Weeks Gestation Final Rafael Confirmed By Final Rafael Confirmed Date Final Rafael Date Ultra Sound Latest Days Gestation 0 0 Menstrual History Last Menstrual Date Menses Monthly On Bcp Conception Prior Menses Frequency Hcg Plus Date Menarche Onset Age Delivery Information Delivery Date Delivery Type Labor Anesthesia Weeks Gestation Incision Type Labor Labor Length Hrs Delivered By Post Complications Tubal Sterilization Discharge Date Comments 7 [facility], fetus_1_w eight_lbs : '11-29'; Discharge Information Feeding Method Contraceptive Method Maternal HG B and HCT Levels
== END 2025-03-10 15:55 | disposition home or self-care (01) ==
LOC: ANHFOHIMG 15:57
PROVIDERS: PCP Physician Assistant Medical; Visit Provider Obstetrics & Gynecology
DX: Z12.31 Encounter for screening mammogram for malignant neoplasm of breast (principal)
CPT/HCPCS: 77063; 77067